=== PATIENT | female | born 1970 ===

== ENCOUNTER 2017-03-22 18:45 | Emergency (ER) | payer MEDICAID ==
[2017-03-22 22:01] LABS: RBC URINE 1 /hpf (0-3); URINE BACTERIA RARE (<OCC); URINE BILIRUBIN NEGATIVE (NEGATIVE); URINE BLOOD NEGATIVE (NEGATIVE); URINE COLOR Yellow (YELLOW); URINE GLUCOSE (UA) NORMAL (Normal); URINE KETONE NEGATIVE (NEGATIVE); URINE LEUKOCYTE ESTERASE NEG Leu/uL (Negative); URINE PROTEIN NEGATIVE (NEGATIVE); URINE UROBILINOGEN NORMAL mg/dL (0.2-1.0); WBC URINE < 1 /hpf (0-5)
[2017-03-22 23:37] VITALS: BP 126/85; PULSE 65; RESP 18; TEMP 98.5; O2SAT 97
--- NOTE | 2017-03-22 23:42 | C.PDOC ---
History Of Present Illness 46 y/o female with no medical problems, c/o feeling febrile, lethargic, fatigue , and having a mild cough for 2 days. Patient also c/o non-itchy rash all over her body for 5 days. Patient denies chest pain, SOB, abdominal pain, nausea, or vomiting. No sick contact. Time Seen by Provider: 03/22/17 21:01 Chief Complaint (Nursing): Flu-like Symptoms History Per: Patient History/Exam Limitations: no limitations Onset/Duration Of Symptoms: Days (2) Current Symptoms Are (Timing): Still Present Sick Contacts (Context): None Ear Symptoms: Bilateral: None Severity: Mild Recent travel outside of the [place]: No Additional History Per: Patient Past Medical History Reviewed: Historical Data, Nursing Documentation, Vital Signs Vital Signs: Last Vital Signs Temp 98.5 F 03/22/17 23:36 Pulse 65 03/22/17 23:36 Resp 18 03/22/17 23:36 BP 126/85 03/22/17 23:36 Pulse Ox 97 03/23/17 05:35 - Medical History PMH: HTN, Hypercholesterolemia Surgical History: Cholecystectomy Family History: States: Unknown Family Hx - Social History Hx Alcohol Use: No Hx Substance Use: No - Immunization History Hx Tetanus Toxoid Vaccination: No Hx Influenza Vaccination: No Hx Pneumococcal Vaccination: No Review Of Systems Constitutional: Positive for: Fever, Other (fatigue, lethargic) Cardiovascular: Negative for: Chest Pain Respiratory: Positive for: Cough. Negative for: Shortness of Breath Gastrointestinal: Negative for: Nausea, Vomiting, Abdominal Pain Skin: Positive for: Rash Physical Exam - Physical Exam Appears: Non-toxic, Other (Uncomfortable) Skin: Warm, Dry, Rash (Scattered erythematous papules to the left upper arm, forehead, face, and right lower back. Excoriated papules to the mid lower back and the left upper arm. Few scattered 2-3 pustules to the bilateral arms.) Head: Atraumatic, Normacephalic Eye(s): bilateral: Normal Inspection Ear(s): Bilateral: Normal Oral Mucosa: Moist Throat: Normal, No Erythema Chest: Symmetrical Cardiovascular: Rhythm Regular, No Murmur Respiratory: Normal Breath Sounds, No Rales, No Rhonchi, No Wheezing Gastrointestinal/Abdominal: Soft, No Tenderness, No Distention Neurological/Psych: Oriented x3 ED Course And Treatment O2 Sat by Pulse Oximetry: 97 (RA) Pulse Ox Interpretation: Normal Medical Decision Making Medical Decision Making: Plans: * UA * Blood labs * Serology pt noted to have left stetcher, seen walking out of ED., does not want to return for prescription for antibiotics, nor to sign any paperwork. Disposition - Disposition Disposition: ELOPEMENT - ER ONLY Disposition Time: 23:40 Condition: STABLE Forms: [employer] (Gambian) - Clinical Impression Clinical Impression: Left before treatment completed - Scribe Statement The provider has reviewed the documentation as recorded by the Scribe Bharathi lux All medical record entries made by the Scribe were at my direction and personally dictated by me. I have reviewed the chart and agree that the record accurately reflects my personal performance of the history, physical exam, medical decision making, and the department course for this patient. I have also personally directed, reviewed, and agree with the discharge instructions and disposition.
== END 2017-03-22 23:36 | disposition left against medical advice (07) ==
LOC: C.ER 18:45
DX: R21 Rash and other nonspecific skin eruption (principal); J11.1 Influenza due to unidentified influenza virus with other respiratory manifestations